=== PATIENT | female | born 1990 | race Caucasian/White ===

== ENCOUNTER 2019-05-27 07:02 | Inpatient (IN) | payer MEDICAID ==
[~2019-05-27] VITALS: Ht 162.6 cm; Wt 88.2 kg
[~2019-05-27 07:02] MED LIST: PRENAT PO
[2019-05-27 07:18] VITALS: Ht 162.6 cm; Wt 88.2 kg
--- NOTE | 2019-05-27 08:10 | TRIAGE ---
OB Triage Datetime Report Generated by CPN: 05/27/2019 08:09 Datetime: 05/27/2019 07:56 Labor Evaluation Frequency: 2-5 Monitor Mode: External Duration (sec)2399: 50-80 Quality: Mild Pattern: Normal: <= 5 Contractions in 10 Minutes Resting Tone [place]: Relaxed Heart Rate FHR Baseline Rate: 145 Monitor Mode: External US Variability: Moderate 6-25 bpm Accelerations: 15X15 Decelerations: Variable Category: Category II Pain Assessment Pain Scale: 4 Pain Presence: Intermittent Pain Type: Contraction Pain Location: Abdomen Pain Goal: 3 Datetime: 05/27/2019 07:23 Assessment Type: Triage Maternal Assessment Level of Consciousness: Keenly Alert, Responsive DTR's/Clonus: DTRs 2+; No Clonus Headache: Denies Blurred Vision: No Respiratory Effort: Unlabored; Regular Rhythm; Equal Expansion Breath Sounds, Left: Clear and Equal Breath Sounds, Right: Clear and Equal Nausea/Vomiting: Denies RUQ Epigastric Pain: Denies Lower Extremities Edema: None Degree: None Upper Extremities Edema: None Degree: None Facial Edema: None Fall Risk Assessment History of Falling: (0) No Secondary Diagnosis: (0) No Ambulatory Aid: (0) Bedrest/Nurse Assist IV Therapy: (0) No Gait: (0) Normal/Bedrest/Immobile Mental Status: (0) Oriented to Own Ability Fall Score: 0 Fall Risk Score Definition: No Risk: No action required Datetime: 05/27/2019 07:22 Time of Arrival: 05/27/2019 07:00 EGA: 38.2 Arrived By: Ambulatory Arrived From: Home Chief Complaint: UC @ 0300 Movement: Present Contractions: Irregular Rupture of Membranes: Denies Vaginal Bleeding: None Vaginal Discharge: Denies Recent Sexual Intercouse: Denies Abdominal Trauma: Not Applicable Patient Complaints: Contractions Time Provider Notified: 05/27/2019 07:46 Provider Notified: dr. bello Initial Plan: R/O LABOR Datetime: 05/27/2019 07:20 Vaginal Exam Dilatation (cms): 0.5 Station: -3 Exam By: [facility]
--- NOTE | 2019-05-27 08:16 | HP ---
Date/Time of Note Date/Time of Note DATE: 05/27/19 TIME: 08:15 OB - History Hx of Present Free Text/Dictation 38+wks GA with variable decels : 4 Para: 3 Care: Good Care Ultrasounds: Normal mid trimester US Obstetrical Complications: None Medical Complications: None Past Family/Social History * Past Medical, Surgical, Family and Obstetric Histories reviewed from chart. OB Admission Exam Physical Exam Abdomen: WNL Extremities: Normal Cervical Dilatation: Fingertip Station: -1 Membranes: Intact Heart Rate: 140's Accelerations: Accelerations Present Decelerations: Variable Decelerations Contractions on Admission: 6-10 Minutes Apart OB Assessment/Plan Reason for admission: observation Other Assessment: PMH Louis PS Cheri Plan: Expectant Management YURI BURRELL M.D. May 27, 2019 08:16
[2019-05-27] MEDS: LACTATED RINGER'S 1,000 ML IV SCH ×3 (09:53→23:14)
[2019-05-28] MEDS: LACTATED RINGER'S 1,000 ML IV SCH ×2 (06:27→15:26)
[2019-05-28 09:10] VITALS: RESP 20
[2019-05-28] MEDS ORDERED: MINERAL OIL LIGHT 10 ML VIAL TOP ONE (11:00)
[2019-05-28] MEDS ORDERED: OXYTOCIN 30 UNITS/LR 500 ML IV SCH ×3 (11:00→12:00)
[2019-05-28] MEDS ORDERED: METHYLERGONOVINE 0.2 MG INJ IM PRN (11:00)
[2019-05-28] MEDS ORDERED: LIDOCAINE 1% (MPF) 30 ML INJ INJ PRN (11:00)
[2019-05-28] MEDS ORDERED: AMPICILLIN 2 GM/NS (PMX) 100 ML IV ONE (11:00)
[2019-05-28] MEDS ORDERED: IBUPROFEN 600 MG TAB PO PRN (11:00)
[2019-05-28] MEDS ORDERED: CARBOPROST 250 MCG INJ IM PRN (11:00)
[2019-05-28] MEDS ORDERED: OXYTOCIN 30 UNITS/LR 500 ML IV PRN (11:00)
[2019-05-28] MEDS ORDERED: BUTORPHANOL 2 MG INJ IV PRN ×2 (11:00)
[2019-05-28] MEDS ORDERED: MISOPROSTOL 200 MCG TAB PR PRN (11:00)
[2019-05-28] MEDS: AMPICILLIN 1 GM/NS (PMX) 50 ML IV SCH ×2 (17:23→22:08)
--- NOTE | 2019-05-29 01:11 | PREAC ---
Date/Time of Note Date/Time of Note DATE: 05/29/19 TIME: 01:10 Anesthesia Eval and Record Evaluation Time Pre-Procedure Interview DATE: 05/29/19 TIME: 01:10 Age 29 Sex female NPO: Other (n/a) Preoperative diagnosis intrauterine Planned procedure labor epidural Past Medical History Past Medical History: Includes : Gestational age: (38.4) Surgery & Anesthesia Issues No known issue Meds Anticoagulation: No Beta Rafa within 24 hr: No Reason Beta Rafa not given: Pt. not on B-Rafa Reported Medications Multivit/Min/Fol Ac/Iron/Pren* ( S*) 1 Tab Tab, 1 TAB PO DAILY, TAB 05/07/16 Current Medications Lactated Ringer's 1,000 ml @ 125 mls/hr Q8H IV Last administered on 05/28/19at 06:27; Admin Dose 125 MLS/HR; Start 05/27/19 at 08:06 Lactated Ringer's 1,000 ml @ 125 mls/hr Q8H IV Last administered on 05/28/19at 15:26; Admin Dose 125 MLS/HR; Start 05/28/19 at 10:55 Ampicillin 50 ml @ 100 mls/hr Q4H IV Last administered on 05/28/19at 22:08; Admin Dose 100 MLS/HR; Start 05/28/19 at 15:00 Butorphanol Tartrate (Stadol) 1 mg Q2H PRN IV .PAIN SCALE 1-5; Start 05/28/19 at 11:00 Butorphanol Tartrate (Stadol) 2 mg Q2H PRN IV .PAIN SCALE 6-10; Start 05/28/19 at 11:00 Lidocaine (Xylocaine 1% (Mpf)) 30 ml ONCE PRN INJ .EPISIOTOMY; Start 05/28/19 at 11:00 Oxytocin/Lactated Ringer's 500 ml @ 500 mls/hr ONCE POST IV ; Start 05/28/19 at 11:00 Oxytocin/Lactated Ringer's 500 ml @ 125 mls/hr POST IV ; Start 05/28/19 at 11:00 Ibuprofen (Motrin) 600 mg ONCE PRN PO .PAIN 1-5; Start 05/28/19 at 11:00 Oxytocin/Lactated Ringer's 500 ml @ 0 mls/hr ONCE PRN IV .VAGINAL BLEEDING; Start 05/28/19 at 11:00 Methylergonovine Maleate (Methergine) 0.2 mg ONCE PRN IM .VAGINAL BLEEDING; Start 05/28/19 at 11:00 Carboprost Tromethamine (Hemabate) 250 mcg ONCE PRN IM .VAGINAL BLEEDING; Start 05/28/19 at 11:00 Misoprostol (Cytotec) 1,000 mcg ONCE PRN [place] .VAGINAL BLEEDING; Start 05/28/19 at 11:00 Oxytocin/Lactated Ringer's 500 ml @ 0 mls/hr FOR INDUCTION IV ; Start 05/28/19 at 12:00 Lactated Ringer's 1,000 ml @ 2,000 mls/hr Q30M PRN IV .ANESTHESIA; Start 05/29/19 at 00:34 Meds reviewed: Yes Allergies Coded Allergies: No Known Allergy (Unverified , 05/27/19) Allergies Reviewed: Yes Labs/Studies Labs Reviewed: Reviewed by anesthesiologist Result Diagram: 05/28/19 1227 05/28/19 1226 Laboratory Tests 05/28/19 12:26 05/28/19 12:27 Blood Bank Test 05/28/19 12:27 Antibody Screen NEGATIVE Blood Type O POSITIVE Rh Immune Globulin Candidate NO test: N/A Pre-procedure Exam Last vitals Vital Signs Date Temp Pulse Resp B/P (MAP) Pulse Ox O2 O2 Flow FiO2 Time Delivery Rate 05/28/19 98.4 20 Room Air 09:10 Airway: Adequate mouth opening, Adequate thyromental dist Mallampati: Mallampati II Teeth: Normal Lung: Normal Heart: Normal ASA Physical Status ASA physical status: 2 Emergency: None Planned Anesthetic Neuraxial: Epidural Planned Pain Management Epidural Pre-operative Attestations Prior to commencing anesthesia and surgery, the patient was re-evaluated, there was verification of: *The patient's identity *The results of appropriate recent lab work and preoperative vital signs *The above evaluation not changing prior to induction *Anesthetic plan, risk benefits, alternative and complications discussed with patient/family; questions answered; patient/family understands, accepts and wishes to proceed. JADE CHAN MD May 29, 2019 01:11
[2019-05-29] MEDS ORDERED: FENTAnyl 2MCG/ML-ROPIV 0.2% 100 ML ONE (01:18)
[2019-05-29] MEDS: LACTATED RINGER'S 1,000 ML IV PRN ×2 (01:25→02:03)
[2019-05-29] MEDS ORDERED: NALOXONE (0.4 MG/ML) INJ IV PRN (01:30)
[2019-05-29] MEDS ORDERED: ONDANSETRON 4 MG INJ IV PRN (01:30)
[2019-05-29] MEDS ORDERED: DIPHENHYDRAMINE 50 MG INJ IV PRN (01:30)
[2019-05-29] MEDS: AMPICILLIN 1 GM/NS (PMX) 50 ML IV SCH ×7 (02:00→23:00)
--- NOTE | 2019-05-29 02:20 | PAC ---
Date/Time of Note Date/Time of Note DATE: 05/29/19 TIME: 02:20 Post-Anesthesia Notes Post-Anesthesia Note Last documented vital signs Vital Signs Date Temp Pulse Resp B/P (MAP) Pulse Ox O2 O2 Flow FiO2 Time Delivery Rate 05/28/19 98.4 20 Room Air 09:10 Activity: WNL Respiratory function: WNL Cardiovascular function: WNL Mental status: Baseline Pain reasonably controlled: Yes Hydration appropriate: Yes Nausea/Vomiting absent: Yes Comments BP: 116/68 HR: 80 RR: 15 T: 98 SaO2: 99% JADE CHAN MD May 29, 2019 02:20
--- NOTE | 2019-05-29 09:58 | QN ---
Documentation Comment NST is category 1. On Pitocin at this time. No significant change based on last exam. RN we will recheck the patient and if there is no significant change we will switch to Cytotec. MATA VELAZCO MD May 29, 2019 09:57
[2019-05-29] MEDS: FENTAnyl 2MCG/ML-ROPIV 0.2% 100 ML BAG EPI SCH ×2 (10:03→18:32)
[2019-05-29] MEDS: MISOPROSTOL 50 MCG CAPSULE PO SCH ×2 (10:40→14:28)
[2019-05-29] MEDS: LACTATED RINGER'S 1,000 ML IV SCH ×2 (14:21→19:36)
[2019-05-29] MEDS ORDERED: MINERAL OIL LIGHT 10 ML VIAL TOP PRN (22:30)
[2019-05-30] MEDS: LACTATED RINGER'S 1,000 ML IV SCH ×2 (00:55→04:53)
[2019-05-30] MEDS: FENTAnyl 2MCG/ML-ROPIV 0.2% 100 ML BAG EPI SCH (03:00)
[2019-05-30] MEDS: AMPICILLIN 1 GM/NS (PMX) 50 ML IV SCH (03:07)
--- NOTE | 2019-05-30 04:54 | LDN ---
Date/Time of Note Date/Time of Note DATE: 05/30/19 TIME: 04:52 Delivery Summary Weeks of Gestation 38 weeks and 5 days Placenta Delivered: Spontaneously Meconium: none Episiotomy: No Anesthesia type: Epidural Estimated blood loss: 100 Sponge & Needle done & correct: Yes All needle counts correct: Yes Any foreign bodies felt in the: No Delivery Information Sex Sex: female Apgars 1 Minute: 8 5 Minute: 9 Suctioning Nose & mouth suctioned at ge: No Delee suction performed: No Umbilical Cord Umbilical cord with: 3 Vessels Cord presentations: no nuchal cord Cord Blood was obtained: Yes Mother & Baby Disposition Disposition Mom & Baby to Maternity; Good: Yes DEYSI DE LA FUENTE MD May 30, 2019 04:54
[2019-05-30 06:30] VITALS: BP 126/70; PULSE 70; RESP 20
[2019-05-30] MEDS ORDERED: LACTATED RINGER'S 1,000 ML IV* SCH (06:45)
[2019-05-30] MEDS ORDERED: DIBUCAINE 1% 30 GM OINT TOP PRN (07:00)
[2019-05-30] MEDS ORDERED: CARBOPROST 250 MCG INJ IM PRN (07:00)
[2019-05-30] MEDS ORDERED: BENZOCAINE 20% 56 ML SPRAY TOP PRN (07:00)
[2019-05-30] MEDS ORDERED: MISOPROSTOL 200 MCG TAB PR PRN (07:00)
[2019-05-30] MEDS ORDERED: METHYLERGONOVINE 0.2 MG INJ IM PRN (07:00)
[2019-05-30] MEDS ORDERED: ACETAMINOPHEN 325 MG TAB PO PRN (07:00)
[2019-05-30] MEDS ORDERED: OXYTOCIN 30 UNITS/LR 500 ML IV PRN (07:00)
[2019-05-30] MEDS ORDERED: WITCH HAZEL/GLYCERIN PAD PR PRN (07:00)
[2019-05-30 07:49] VITALS: BP 126/66; PULSE 87; RESP 18
[2019-05-30] MEDS: SENNA/DOCUSATE NA (8.6MG/50MG) TAB PO SCH ×2 (08:27→21:01)
[2019-05-30] MEDS: HYDROCODONE/APAP (5/325) TAB PO PRN ×3 (09:25→19:43)
[2019-05-30 12:00] VITALS: BP 131/84; PULSE 73; RESP 20
[2019-05-30] MEDS: IBUPROFEN 600 MG TAB PO SCH ×3 (12:17→23:24)
[2019-05-30 16:10] VITALS: BP 124/70; PULSE 83; RESP 20
[2019-05-30] MEDS ORDERED: PETROLATUM 5 GM OINT TOP PRN (17:00)
[2019-05-30 19:43] VITALS: BP 124/77; PULSE 71; RESP 19
[2019-05-31 04:00] VITALS: BP 120/67; PULSE 72; RESP 20
[2019-05-31] MEDS: IBUPROFEN 600 MG TAB PO SCH ×3 (05:23→18:01)
--- NOTE | 2019-05-31 06:33 | DELSUM ---
Delivery Summary A-C Datetime Report Generated by CPN: 05/31/2019 06:33 DELIVERY PERSONNEL Rn Informatics: Wilde, Candi MATERNAL INFORMATION Delivery Anesthesia: Epidural Medications in Delivery: 30 UNITS PITOCIN Delivery QBL (ml): 100 Placenta Cultured: No Maternal Complications: Other Other Maternal Complications: hs of PIH w first w another fob RN Comments: gbs positive, variables, fob born deaf LABOR SUMMARY EDC: 06/08/2019 00:00 No. Babies in Womb: 1 Attempted: No Labor Anesthesia: Epidural LABOR INFORMATION Reason for Induction: Indicated by Test Onset of Labor: 05/28/2019 17:00 Complete Dilatation: 05/30/2019 04:24 Cervical Ripening Agents: Cytotec @ 50 Group B Beta Strep: Positive Antibiotics # of Doses: 10 Antibiotics Time of Last Dose: 05/30/2019 03:07 Steroids Given: None Reason Steroids Not Administered: Not Applicable MEMBRANES Membranes Rupture Method: Spontaneous Rupture of Membranes: 05/30/2019 03:30 Length of Rupture (hr): 1.15 Amniotic Fluid Color: Clear Amniotic Fluid Amount: Moderate Amniotic Fluid Odor: None STAGES OF LABOR Stage 1 hr: 35 Stage 1 min: 24 Stage 2 hr: 0 Stage 2 min: 15 Stage 3 hr: 0 Stage 3 min: 3 Total Time in Labor hr: 35 Total Time in Labor min: 42 VAGINAL DELIVERY Episiotomy: None Laceration Extension: N/A Laceration Type: None Laceration Repair: Not Applicable Initial Vag Sponge Count: 10 Final Vag Sponge Count: 10 Initial Vag Sharps Count: 1 Final Vag Sharps Count: 1 Sponge Count Correct: Yes; Vaginal Sweep Performed Sharps Count Correct: Yes BABY A INFORMATION Delivery Date/Time: 05/30/2019 04:39 Method of Delivery: Vaginal Born in Route : No : N/A Forceps: N/A Vacuum Extraction: N/A Shoulder Dystocia : No SHOULDER DYSTOCIA BABY A Infant Delivery Date/Time: 05/30/2019 04:39 PRESENTATION/POSITION BABY A Presentation: Cephalic Cephalic Presentation: Vertex Breech Presentation: N/A PLACENTA INFORMATION BABY A Placenta Delivery Time : 05/30/2019 04:42 Placenta Method of Delivery: Expressed Placenta Status: Delivered SCORES BABY A Heart Rate 1 min: >100 bpm Resp Effort 1 min: Good Cry Reflex Irritability 1 min: Cough/Sneeze/Pulls Away Muscle Tone 1 min: Active Motion Color 1 min: Blue/Pale Resuscitation Effort 1 min: Tactile Stimulation SCORE 1 MIN: 8 Heart Rate 5 min: >100 bpm Resp Effort 5 min: Good Cry Reflex Irritability 5 min: Cough/Sneeze/Pulls Away Muscle Tone 5 min: Active Motion Color 5 min: Body Lower [place], Extremit Blue Resuscitation Effort 5 min: Tactile Stimulation SCORE 5 MIN: 9 INFANT INFORMATION BABY A Gestational Age at Delivery: 38.5 Gestational Status: Early Term- 37- 38.6 Weeks Outcome : Liveborn, with signs of life Condition : Stable Infant Sex: Female IDENTIFICATION/MEDS BABY A ID Band Number: [id number] ID Band Location: Right Leg; Left Arm Sensor Applied: Yes Sensor Number: [id number] Sensor Location : Cord Clamp Vitamin K Given : Not Given Erythromycin Given: Not Given WEIGHT/LENGTH BABY A Infant Birthweight (gm): 3390 Weight (lb): 7 Weight (oz): 8 Length (in): 18.75 Infant Length (cm): 47.63 CORD INFORMATION BABY A No. Cord Vessels: 3 Nuchal Cord : N/A Cord Blood Taken: Yes Suction: Mouth; Nose ASSESSMENT BABY A Infant Complications: Multiple Variable Decels Infant Complications- Other: +GBS, fob born deaf Physical Findings at Delivery: Within Normal Limits Respirations: Appears Normal Bacon Slicer/ALS Called : No Infant Care By: MARILUZ Transferred To: Remains with Mother
--- NOTE | 2019-05-31 08:17 | DS ---
Date/Time of Note Date/Time of Note DATE: 05/31/19 TIME: 08:17 Obstetrical Discharge Record Final Diagnosis Final Diagnosis: Term delivered Vaginal Delivery Obstetrical Delivery: Spontaneous Complications Augmentation: Yes Induction: Yes Rupture of Membranes: No Condition on Discharge Physical Assessment Voiding: Yes Bowel Movement: Yes Breast: Soft, non-tender, Filling Fundus: Firm Abdomen and Incision: Firm fundus, not tender, soft Calf Tenderness: No Patient Condition: Good MATA VELAZCO MD May 31, 2019 08:17
[2019-05-31 08:30] VITALS: BP 118/67; PULSE 73; RESP 20
[2019-05-31] MEDS: SENNA/DOCUSATE NA (8.6MG/50MG) TAB PO SCH (09:00)
[2019-05-31] MEDS: HYDROCODONE/APAP (5/325) TAB PO PRN (09:23)
[2019-05-31] MEDS ORDERED: ZINC OXIDE 13% (DESITIN) CREAM 2 OZ TUBE TOP PRN (12:30)
[2019-05-31 16:00] VITALS: BP 129/85; PULSE 74; RESP 20
[2019-06-01] MEDS ORDERED: DIPHTH/TET/ACEL PERTUSS (ADULT) 0.5 ML VIAL IM* ONE (09:00)
== END 2019-05-31 18:54 | disposition home or self-care (01) | DRG 807 ==
LOC: OBT 07:02 → L-D 07:03 → OBT 07:55 → L-D 07:55 → MS1 05-30 06:31
PROVIDERS: ADMIT Specialist; ATTEND Specialist
PROC: 10E0XZZ Delivery of Products of Conception, External Approach (ICD-10-PCS; principal; 2019-05-30)
DX: O80 Encounter for full-term uncomplicated delivery (principal); Z37.0 Single live birth; Z3A.38 38 weeks gestation of pregnancy
CPT/HCPCS: 62322; 76815; 76818; 80053; 84560; 85025; 85384; 85610; 85730; 86592; 86850; 86900; 86901; 87340; G0463; J0290; J2590; J3010; J7120